=== PATIENT | male | born 1945 | race Caucasian/White ===

== ENCOUNTER → 2016-08-09 | Outpatient (CLI) | payer MEDICARE ==
[2016-08-09 07:57] LABS: ANION GAP 12.9 MEQ/L (3-15); BUN/CREATININE RATIO 20 (10-20)
== END ==
LOC: LAB 07:23
PROVIDERS: ATTEND Family Medicine
DX: R79.89 Other specified abnormal findings of blood chemistry (principal); E03.4 Atrophy of thyroid (acquired)
CPT/HCPCS: 36415; 80048; 84436; 84443